=== PATIENT | female | born 1960 | race Caucasian/White ===

== ENCOUNTER → 2017-03-27 | Outpatient (CLI) | payer BC ==
[2017-03-27 15:06] LABS: HCT 43.4 % (34.0-46.0); HGB 14.6 gm/dL (11.4-16.0); MCH 30.9 pg (25.0-35.0); MCHC 33.7 g/dL (31.0-37.0); MCV 91.7 fL (80.0-100.0); Mean Platelet Volume 6.8; Platelet Count 302 k/uL (150-450); RBC 4.74 m/uL (3.80-5.40); RDW 12.4 % (11.5-15.5); WBC 6.1 k/uL (3.8-10.6)
[2017-03-27 15:38] LABS: Anion Gap 10 mmol/L; Blood Urea Nitrogen 12 mg/dL (7-17); Carbon Dioxide 29 mmol/L (22-30); Chloride 104 mmol/L (98-107); Potassium 4.4 mmol/L (3.5-5.1); Sodium 143 mmol/L (137-145)
== END | disposition home or self-care (01) ==
LOC: LABPAT 14:33
PROVIDERS: ATTEND Internal Medicine Interventional Cardiology
DX: Z01.812 Encounter for preprocedural laboratory examination (principal); I25.10 Atherosclerotic heart disease of native coronary artery without angina pectoris
CPT/HCPCS: 36415; 80051; 82565; 84520; 85027

== ENCOUNTER → 2017-04-03 | Day surgery (SDC) | payer BC ==
[2017-03-30 15:08] VITALS: BMI 39.4
[~2017-04-03] MED LIST: ACETAMINOPHEN TAB 325 MG TAB ONE; ACETAMINOPHEN TAB 325 MG TAB PO PRN; ALPRAZolam 0.25 MG TAB PO PRN; ASPIRIN 325 MG TAB PO ONE; HEPARIN SODIUM 1,000 UN/ML (10ML VL) IV ONE; HEPARIN SODIUM 1,000 UN/ML (10ML VL) ONE; IOHEXOL 350 MG/ML 125ML BOTTLE INJ ONE; LIDOCAINE 2% INJ 20 MG/ML (20 ML MDV) ONE; LIDOCAINE 2% INJ 20 MG/ML SQ ONE; MIDAZOLAM 2 MG/2 ML VIAL IV ONE; MIDAZOLAM 2 MG/2 ML VIAL ONE; NITROGLYCERIN SL TABS 0.4 MG TAB SUBLINGUAL PRN; RX INFO: IV CONTRAST WAS GIVEN 1 EACH MISC MISCELLANE PRN; SODIUM CHLORIDE 0.9% 1,000 ML IV SCH; SODIUM CHLORIDE 0.9% 1,000 ML in EMPTY BAG 1 BAG IV ONE; VERAPAMIL 2.5 MG/ML 2 ML AMP ONE; diphenhydrAMINE 50 MG/ML 1 ML VIAL ONE
[2017-04-03 11:21] VITALS: RESP 18
[2017-04-03] MEDS: VERAPAMIL SYRINGE (5 MG/10 ML) INTRAARTER ONE ×2 (12:24→12:32)
--- NOTE | 2017-04-03 13:01 | CC ---
CARDIAC CATHETERIZATION REPORT DATE OF SERVICE: 04/03/2017. PERFORMING PHYSICIAN: Aditya Mosqueda MD, Corporate Physical Security Supervisor. PROCEDURE PERFORMED: 1. Selective right and left coronary angiogram. 2. Left heart catheterization. 3. Left ventriculography. INDICATION: This is a pleasant 56-year-old female patient who was diagnosed recently with cardiomyopathy and the heart catheterization is to rule out any severe underlying CAD. APPROACH: Right radial artery. COMPLICATION: None. LEVEL OF SEDATION: Moderate with sedation length of 18 minutes. PROCEDURE DESCRIPTION: After obtaining AN informed consent, the patient was brought to the Cardiac Financial Management Analyst. The right radial artery was cannulated using micropuncture technique and a micropuncture wire passed easily. Then I placed a 6-Nepalese sheath in the radial artery. After that, I gave the patient 2 mg of verapamil IA and 10,000 units of heparin IV. Subsequently, I did selective right and left coronary angiogram using JR4 and JL3.5 catheters. Then I did left heart catheterization and LV gram using 6-Nepalese pigtail catheter. The procedure was completed without any complication. SELECTIVE CORONARY ANGIOGRAM: 1. The RCA is a large caliber vessel, it is a dominant vessel, and is angiographically normal. It bifurcates into PDA and PLV branches. 2. The left main is angiographically normal. It bifurcates into the circumflex and left anterior descending artery. 3. The circumflex is a large caliber vessel. It is a nondominant vessel. The proximal circ is angiographically normal. The mid circ is normal and gives rise into a large OM branch which seems to be angiographically normal. The left circumflex distally is angiographically normal. 4. Left descending artery: The proximal LAD is angiographically normal. It gives rise into a medium-sized diagonal branch which seems to be angiographically normal. The mid LAD is normal and gives rise into a second diagonal branch which seems to be angiographically normal. Distally it is angiographically normal. HEMODYNAMICS: The left ventricular end-diastolic pressure was 10 mmHg. Left ventriculography was performed in the HORTON projection using a power injection. The left ventricular systolic function is impaired with EF about 35% with anterior hypokinesia. CONCLUSION: 1. Normal coronary angiogram. 2. Nonischemic cardiomyopathy with ejection fraction about 35% with anterior hypokinesia. POSTPROCEDURE MANAGEMENT: Maximize medical treatment and follow up with the patient. MMODL / IJN: [id number] /
--- NOTE | 2017-04-03 13:01 | LTR ---
DATE OF SERVICE: 04/03/2017 RE: Geni Black Dear Dr. Monteiro; Ms. Geni Black underwent a heart catheterization and that revealed normal coronaries. I want to thank you for allowing me to participate in her care and please do not hesitate to call if you have any question or concern. Sincerely, MD LEYDA Srivastava / MICHAEL: [id number] /
[2017-04-03 13:28] VITALS: TEMP 98
[2017-04-03 14:53] VITALS: BP 114/76; PULSE 74
== END ==
LOC: CATHCVL 11:04
PROVIDERS: ATTEND Internal Medicine Interventional Cardiology
DX: I42.8 Other cardiomyopathies (principal); I44.7 Left bundle-branch block, unspecified; R94.39 Abnormal result of other cardiovascular function study; Z79.82 Long term (current) use of aspirin; Z79.899 Other long term (current) drug therapy; Z82.3 Family history of stroke
CPT/HCPCS: 93458; C1894; J2001; J2250; J1644; Q9967